=== PATIENT | female | born 1945 | race Caucasian/White ===

== ENCOUNTER 2020-04-09 06:30 | Day surgery (SDC) | payer OTHER ==
[~2020-04-09] VITALS: Ht 162.6 cm; Wt 98.9 kg
[~2020-04-09 06:30] MED LIST: ALLOPURINOL300 MG PO; BENICAR40 MG PO; DILTIAZEM 24HR180 MG PO; HYDROCHLOROTH12.5 MG PO; KLOR-CON 1010 MEQ PO; METFORMIN HCL500 MG PO; NOVOLIN N100 UNIT/1 SUB-Q; PEPCID20 MG PO
[2020-04-09] MEDS ORDERED: VICTOZA 2-0.6 MG/0.1 SUB-Q (06:52)
--- NOTE | 2020-04-09 08:05 | NUR ---
04/09/20 0805 Wes Senior EXTREME CARE USED IN MOVING PATIENTS BED INTO PACU AND REPOSITIONING PT IN BED TO NOT EXASERBATE VERTIGO.
--- NOTE | 2020-04-09 09:47 | OR ---
[facility] [address], [place] [address] Signed DATE OF OPERATION: 04/09/2020 SURGEON: Elfego Noland MD PREOPERATIVE DIAGNOSES: 1. Personal history of colonic polyps, 1992. 2. Brother with colonic polyps in his 50s. POSTOPERATIVE DIAGNOSIS: A 8-10 mm polyp, proximal right colon. PROCEDURE: Colonoscopy with snare polypectomy. ESTIMATED BLOOD LOSS: None. INDICATIONS: Dayanara is a 74-year-old female asked to see me for followup colonoscopy. She had an adenomatous colonic polyp removed back in 1992. A negative colonoscopy performed in 1994. Another negative colonoscopy in 2006. She also had several barium enemas and all have been negative. In addition, her brother had colonic polyps removed in his 50s. He is now living in his 80s. He was not able to come last year for a followup colonoscopy due some other medical issues. That have all been cleared and she is doing better. She also suffers with terrible vertigo. She said once after general anesthetic was horrible for days and days with nausea and vomiting. Consequently, we spoke with our anesthesia provider, he recommended Zofran. In that regard, we gave her 4 mg of Zofran IV preoperatively. In the office, I had reviewed all this with Dayanara in detail. We reviewed endoscopy along with its risks including, but not limited to gas bloating, crampy abdominal pain, bleeding, perforation requiring surgery, and missed diagnosis. We also discussed the need for IV conscious sedation. She had expressed understanding and wished to proceed. DESCRIPTION OF PROCEDURE: Dayanara was taken into our endoscopy suite and placed in the left lateral decubitus position. She was very carefully positioned due to her vertigo. We had given her Zofran 4 mg IV preoperatively. She was then given a total of 7 mg of Versed and 150 mcg of fentanyl to cover the case. A digital rectal exam was performed and this was unremarkable. The adult colonoscope was introduced and advanced under direct visualization of camera. She took some extra sedation and abdominal compression in Electronically Signed By: ELFEGO NOLAND MD 04/09/20 0947 PATIENT NAME: DAYANARA FABIAN OPERATIVE REPORT DATE OF : 49 REPORT #: [id number] PHYSICIAN: ELFEGO NOLAND MD PCP: RUFUS SANTOYO MD REPORT IS CONFIDENTIAL AND NOT TO BE RELEASED WITHOUT AUTHORIZATION [facility] [address], [place] [address] Signed order to advance the scope directly into the cecum itself. Her prep was quite excellent. We could easily see the appendiceal orifice and the ileocecal valve. As the scope was withdrawn, she had a polyp on the 1st fold beyond the ileocecal valve. It was on the back side of the fold. Initially, we grabbed it with hot biopsy forceps and pulled it over and removed a small piece. It stayed in place, so we quickly pass the wire loop over it and divided at the base. We then captured in our basket and removed in that regard. We had withdrawn the scope slowly throughout the entire colon. We saw no other polyps or diverticular disease. The rectum itself had been unremarkable. Upon retroflexion of scope, there was no additional pathology noted above the anal canal. After this, the gas was suctioned out and the colonoscope was removed. Dayanara tolerated the procedure quite well. RECOMMENDATIONS: I will see Dayanara anglin in my office in 7 to 14 days to review her results. Elfego Noland MD ALB/MODL /[id number] cc: MD Rufus Joyner MD Copies: ELFEGO NOLAND MD, MALCOLM MD ~ Electronically Signed By: ELFEGO NOLAND MD 04/09/20 0947 PATIENT NAME: DAYANARA FABIAN OPERATIVE REPORT DATE OF : 49 REPORT #: [id number] PHYSICIAN: ELFEGO NOLAND MD PCP: RUFUS SANTOYO MD REPORT IS CONFIDENTIAL AND NOT TO BE RELEASED WITHOUT AUTHORIZATION
--- NOTE | 2020-04-10 16:34 | PATH ---
[facility] [address] [address] [place] [place] [address] Signed SPECIMEN(S): A PROXIMAL ASCENDING POLYP SPECIMEN(S): B RECTAL POLYP AT 8 CM SPECIMEN SOURCE: A. PROXIMAL ASCENDING POLYP B. RECTAL POLYP AT 8 CM CLINICAL HISTORY: Colonoscopy. History of polyps. MICROSCOPIC DESCRIPTION: Histologic sections of all submitted blocks are examined by light microscopy. These findings, together with the gross examination, support the pathologic diagnosis. FINAL PATHOLOGIC DIAGNOSIS: A. Colon, proximal ascending, polyp, polypectomy: - Tubular adenoma. - Negative for high-grade dysplasia or malignancy. B. Rectum, polyp at 8 cm, polypectomy: - Hyperplastic polyp. - Negative for dysplasia or malignancy. NAL:cml:C2NR GROSS DESCRIPTION: Two specimens are received in two containers, labeled "DL." A. The specimen, labeled "DL, proximal ascending colon polyp," is received in formalin and consists of one masters soft tissue fragment that measures 0.9 cm in greatest dimension. The specimen is trisected and entirely submitted in cassette (A1). B. The specimen, labeled "DL, rectal polyp at 8 cm," is received in formalin and consists of one masters soft tissue fragment that measures 0.2 cm in greatest dimension. The specimen is entirely submitted in cassette (B1). JS (under the direct supervision of a pathologist) The Gross Description was prepared using a voice recognition system. The report was reviewed for accuracy; however, sound-alike word errors, addition and/or deletions may occur. If there is any question about this report, please contact Client Services. PERFORMING LABORATORY: The technical component was performed by [employer], Freddie Tom, PATIENT NAME: MICHAEL FABIAN PATHOLOGY DATE OF : 49 REPORT #: [id number] PHYSICIAN: RACHAEL MORGAN PCP: CHIKA SANTOYO MD REPORT IS CONFIDENTIAL AND NOT TO BE RELEASED WITHOUT AUTHORIZATION [facility] [address] [place], [place] [address] [place] [address] (Manager Area: Pham Simeon MD; CLIA# [id number]). Professional interpretation was performed by [employer] [facility], [address] [address] (CLIA# [id number]). Diagnostician: Kirsten Reilly MD Pathologist Electronically Signed 04/10/2020 Copies: ~ PATIENT NAME: MICHAEL FABIAN PATHOLOGY DATE OF : 49 REPORT #: [id number] PHYSICIAN: RACHAEL MORGAN PCP: CHIKA SANTOYO MD REPORT IS CONFIDENTIAL AND NOT TO BE RELEASED WITHOUT AUTHORIZATION
== END 2020-04-09 09:01 | disposition home or self-care (01) ==
LOC: DS 06:30 → OPS 06:30 → DS 10:30 → OPS 10:30
PROVIDERS: Colon & Rectal Surgery
PROC: 0DBP8ZZ Excision of Rectum, Via Natural or Artificial Opening Endoscopic (ICD-10-PCS; 2020-04-09)
PROC: 0DBK8ZZ Excision of Ascending Colon, Via Natural or Artificial Opening Endoscopic (ICD-10-PCS; principal; 2020-04-09 06:45)
DX: Z12.11 Encounter for screening for malignant neoplasm of colon (principal); D12.2 Benign neoplasm of ascending colon; K62.1 Rectal polyp; Z83.71 Family history of colonic polyps; Z86.010 Personal history of colon polyps; Z79.899 Other long term (current) drug therapy
CPT/HCPCS: 99153; G0500; J2250; J2405; J3010; J7121

== ENCOUNTER 2025-07-07 16:52 | Emergency (ER) | payer MEDICARE, OTHER ==
[~2025-07-07] VITALS: Ht 162.6 cm; Wt 99.0 kg
--- OUTSIDE RECORDS SUMMARY | ~2025-07-07 | XMS | Continuity of Care Document ---
Demographics + + + | Address | [address] [place] [address] | | | [place] [address] | + + + | Preferred Language | Unknown | + + + | Marital Status | | + + + | Moravian Affiliation | Unknown | + + + | Race | White | + + + | Ethnic Group | Not or | + + + Author + + + | Author | [facility] | + + + | Organization | [facility] | + + + | Address | [address] | | | [place] [address] | + + + | Phone | | + + + Care Team Providers + + + + | Care Lead Teacher Name | Role | Phone | + + + + Unavailable | Unavailable | + + + + Allergies No information. Encounters No information. Functional Status No information. Immunizations No information. Medications + + + + | date | description | facility | + + + + | (no date) | Insulin | [facility] | | | [facility] | [facility] | + + + + | (no date) | ALLOPURINOL | [facility] | | | | [facility] | + + + + | (no date) | Cholecalciferol (Vitamin | [facility] | | | D3) | [facility] | + + + + | (no date) | Insulin Regular, Human | [facility] | | | | [facility] | + + + + | (no date) | OLMESARTAN MEDOXOMIL | [facility] | | | | [facility] | + + + + | (no date) | ATORVASTATIN | [facility] | | | | [facility] | + + + + | (no date) | DILTIAZEM HCL | [facility] | | | | [facility] | + + + + | (no date) | LIRAGLUTIDE | [facility] | | | | [facility] | + + + + Problems No information. Procedures No information. Results/Labs No information. Social History +--------+ + + | date | description | facility | +--------+ + + Vital Signs No information."
[~2025-07-07 16:52] MED LIST changes: +BASAGLAR K100 UNIT/1 SQ; +DILT-XR240 MG PO; +LIPITOR20 MG PO; +NOVOLIN R100 UNIT/2 SUB-Q; +VICTOZA 2-0.6 MG/0.1 SUB-Q; +VITAMIN D325 MCG PO
[2025-07-07 18:32] LABS: BASOPHILS 0.8 % (0.1-1.2); EOSINOPHILS 0.3 % (0.7-5.8); LYMPHOCYTES 23.0 % (19.3-51.7); MCH 26.9 PG (25.6-32.2); MCHC 32.4 g/dL (32.2-35.5); MCV 83.0 fL (79.4-94.8); MONOCYTES 6.0 % (4.7-12.5); NEUTROPHILS 69.6 % (34.0-71.1); RBC 4.17 M/uL (3.93-5.22)
[2025-07-07 18:53] LABS: ALT (SGPT) 35.0 U/L (14-59); AST (SGOT) 27.0 U/L (15-37); GLOMERULAR FILTRATION RATE,EST 17.0 mL/min (>60); PROTEIN, TOTAL 6.7 g/dL (6.4-8.2); UREA NITROGEN 46.0 mg/dL (7-18)
[2025-07-07] MEDS ORDERED: SCOPOLAMINE 1 MG/3 DAYS PATCH 1 EACH TDSY TD ONE (19:00)
[2025-07-07] MEDS ORDERED: FUROSEMIDE 40 MG TAB PO ONE (20:15)
[2025-07-07] MEDS ORDERED: SPIRONOLACTONE 25 MG TAB PO ONE (20:15)
[2025-07-07] MEDS ORDERED: ALDACTONE100 MG PO (21:32)
[2025-07-07] MEDS ORDERED: LASIX40 MG PO (21:32)
[2025-07-07 21:46] VITALS: BP 153/74
== END 2025-07-07 21:47 | disposition home or self-care (01) ==
LOC: ED 16:52
PROVIDERS: Emergency Medicine
DX: R18.8 Other ascites (principal); K74.60 Unspecified cirrhosis of liver; I12.9 Hypertensive chronic kidney disease with stage 1 through stage 4 chronic kidney disease, or unspecified chronic kidney disease; E11.22 Type 2 diabetes mellitus with diabetic chronic kidney disease; N18.9 Chronic kidney disease, unspecified; Z88.2 Allergy status to sulfonamides; Z88.5 Allergy status to narcotic agent; Z79.4 Long term (current) use of insulin; Z79.899 Other long term (current) drug therapy
CPT/HCPCS: 36415; 74176; 80053; 85025; 99284-25

== ENCOUNTER 2025-09-22 16:28 | Emergency (ER) | payer MEDICARE, OTHER ==
[~2025-09-22] VITALS: Ht 162.6 cm; Wt 86.1 kg
[~2025-09-22 16:28] MED LIST changes: +ALDACTONE100 MG PO; +LASIX40 MG PO
[2025-09-22 20:39] LABS: BASOPHILS 1.2 % (0.1-1.2); EOSINOPHILS 0.3 % (0.7-5.8); LYMPHOCYTES 20.6 % (19.3-51.7); MCH 26.5 PG (25.6-32.2); MCHC 31.5 g/dL (32.2-35.5); MCV 84.2 fL (79.4-94.8); MONOCYTES 5.8 % (4.7-12.5); NEUTROPHILS 71.7 % (34.0-71.1); RBC 3.73 M/uL (3.93-5.22)
[2025-09-22 21:02] LABS: ALT (SGPT) 55.0 U/L (14-59); AST (SGOT) 32.0 U/L (15-37); GLOMERULAR FILTRATION RATE,EST 17.0 mL/min (>60); PROTEIN, TOTAL 6.9 g/dL (6.4-8.2); UREA NITROGEN 45.0 mg/dL (7-18)
[2025-09-22 21:43] LABS: ERYTHROCYTE SEDIMENTATION RATE 45
[2025-09-22] MEDS ORDERED: DOXYCYCLINE HYCLATE 100 MG HOME.PACK PO ONE (22:00)
[2025-09-22 22:18] VITALS: BP 152/80
== END 2025-09-22 22:30 | disposition home or self-care (01) ==
LOC: ED 16:28
PROVIDERS: Family Medicine
DX: L03.113 Cellulitis of right upper limb (principal); I12.9 Hypertensive chronic kidney disease with stage 1 through stage 4 chronic kidney disease, or unspecified chronic kidney disease; E11.22 Type 2 diabetes mellitus with diabetic chronic kidney disease; Z88.2 Allergy status to sulfonamides; Z88.5 Allergy status to narcotic agent; Z79.899 Other long term (current) drug therapy; Z79.4 Long term (current) use of insulin
CPT/HCPCS: 36415; 73110; 80053; 84550; 85025; 85651; 86140; 99283; A9270